=== PATIENT | female | born 2000 | race Two or more races ===

== ENCOUNTER 2023-06-12 14:45 | Outpatient (CLI) | payer OTHER ==
[2023-06-13 01:33] LABS: BACTERIAL VAGINOSIS DNA NEGATIVE (NEGATIVE); CANDIDA GLABRATA DNA NEGATIVE (NEGATIVE); CANDIDA GROUP DNA NEGATIVE (NEGATIVE); CANDIDA KRUSEI DNA NEGATIVE (NEGATIVE); TRICHOMONAS VAGINALIS DNA NEGATIVE (NEGATIVE)
== END 2023-06-12 15:00 | disposition home or self-care (01) ==
LOC: LAB.N 14:45
PROVIDERS: ATTEND Family Medicine
DX: N76.0 Acute vaginitis (principal)
CPT/HCPCS: 81514

== ENCOUNTER 2024-01-09 21:47 | Emergency (ER) | payer MEDICAID, OTHER ==
--- NOTE | 2024-01-09 22:29 | ED Physician Documentation ---
PD HPI LOWER EXT INJURY - Stated complaint Stated Complaint: LT KNEE INJ - Chief complaint Chief Complaint: Laceration - History obtained from History obtained from: Patient - History of Present Illness PD HPI LOW EXT INJURY LOCATION: Left (23-year-old woman who is up-to-date on tetanus cut her left knee on a sharp glass edge at home just prior to arrival. She is able to walk and bear weight. No other injuries.) PD PAST MEDICAL HISTORY - Past Medical History Past Medical History: No - Past Surgical History Past Surgical History: No - Present Medications Home Medications: Ambulatory Orders Medication Instructions Recorded Confirmed Loratadine [Claritin] 10 mg PO DAILY 01/09/24 01/09/24 - Allergies Allergies/Adverse Reactions: Allergies Allergy/AdvReac Type Severity Reaction Status Date / Time No Known Drug Allergies Allergy Verified 01/09/24 22:00 - Social History Does the pt smoke?: No Smoking Status: Never smoker Does the pt drink ETOH?: No Does the pt have substance abuse?: No - Immunizations Immunizations are current?: Yes - POLST Patient has POLST: No PD ED PE NORMAL - Vitals Vital signs reviewed: Yes - General General: Alert and oriented X 3, No acute distress - Extremities Extremities: Other (1 cm vertical laceration over the left mid patella that does not track to the bursa. No bony tenderness or limited range of motion.) - Neuro Neuro: Alert and oriented X 3 Eye Opening: Spontaneous Motor: Obeys Commands Verbal: Oriented GCS Score: 15 Results - Vitals Vitals: Vital Signs - 24 hr 01/09/24 21:55 Temperature 36.7 C Heart Rate 80 Respiratory 19 Rate Blood Pressure 126/70 O2 Saturation 98 Oxygen O2 Source Room air Procedures - Laceration (location) L knee Length in cm: 1 Wound type: Linear, Into subcut fat Anesthesia: Lidocaine 1% with epi Wound preparation: Chlorhexadine, Irrigated copiously NS Skin layer closure: Nylon, Interrupted, Size #-0 - enter number (4-0), Sutures - enter # (3) Other: Patient tolerated well, No complications, Neurovascular intact, Tetanus UTD Departure - Departure Disposition: 01 Home, Self Care Clinical Impression: Laceration of left knee Qualifiers: Encounter type: initial encounter Qualified Code(s): S81.012A - Laceration without foreign body, left knee, initial encounter Condition: Good Record reviewed to determine appropriate education?: Yes Instructions: ED Laceration All Comments: Come back for any signs of infection which would include: Redness, swelling, drainage, increased pain, or fevers. You can wash it soap and water. Keep it covered and moist with bacitracin ointment which is available over the counter; avoid neosporin. Follow-up with your physician in About 14 days for suture removal. Forms: PCP List
[2024-01-09] MEDS: LIDOCAINE 1%-EPI 1:100000 20 ML MDV SUBQ STA (22:30)
[2024-01-09] MEDS ORDERED: ACETAMINOPHEN 500 MG TABLET PO ONE (22:38)
[2024-01-09] MEDS: ACETAMINOPHEN 500 MG TABLET PO STA (22:40)
[2024-01-09 22:56] VITALS: BP 127/78; O2SAT 99
== END 2024-01-09 22:50 | disposition home or self-care (01) ==
LOC: ED 21:47
DX: S81.012A Laceration without foreign body, left knee, initial encounter (principal); W25.XXXA Contact with sharp glass, initial encounter
CPT/HCPCS: 12001; 99283; A9270

== ENCOUNTER 2024-01-30 17:34 | Emergency (ER) | payer MEDICAID ==
[2024-01-30 18:05] LABS: BILIRUBIN,URINE NEGATIVE (NEGATIVE); GLUCOSE, URINE (UA) NEGATIVE (NEGATIVE); KETONES,URINE (UA) NEGATIVE (NEGATIVE); LEUKOCYTE ESTERASE, URINE NEGATIVE (NEGATIVE); NITRITE,URINE NEGATIVE (NEGATIVE); OCCULT BLOOD,URINE NEGATIVE (NEGATIVE); PROTEIN,URINE NEGATIVE (NEGATIVE); UROBILINOGEN,URINE 0.2 (NORMAL) E.U./dL (NORMAL)
[2024-01-30 18:22] LABS: CLARITY,URINE CLEAR (CLEAR); HCG UR QUAL NEGATIVE
--- NOTE | 2024-01-30 21:57 | ED Physician Documentation ---
History of Present Illness - Stated complaint Stated Complaint: - Chief complaint Chief Complaint: General - Additonal information Additional information: Patient is a 23-year-old female who presents to the emergency department with vaginal discharge and pruritus. She notes symptoms have been going on for the past few days. She notes she has been diagnosed with bacterial vaginosis a few times this year and symptoms feel similar. She denies any pelvic pain no vaginal bleeding with her symptoms. Patient denies being . She is sexually active but has not had a new partner in 6 months. Patient has low concern for any chlamydia or gonorrhea infection. She denies any fevers or chills associated with her symptoms. No nausea or vomiting. PD PAST MEDICAL HISTORY - Past Surgical History Past Surgical History: No - Present Medications Home Medications: Ambulatory Orders Medication Instructions Recorded Confirmed Loratadine [Claritin] 10 mg PO DAILY 01/09/24 01/30/24 Bcp 1 tab PO DAILY 01/30/24 Fluconazole 150 mg PO ONCE #1 tablet 01/30/24 - Allergies Allergies/Adverse Reactions: Allergies Allergy/AdvReac Type Severity Reaction Status Date / Time No Known Drug Allergies Allergy Verified 01/30/24 17:43 - Social History Does the pt smoke?: No Smoking Status: Never smoker Does the pt drink ETOH?: No Does the pt have substance abuse?: No - Immunizations Immunizations are current?: Yes - POLST Patient has POLST: No PD ED PE NORMAL - Vitals Vital signs reviewed: Yes - General General: Alert and oriented X 3 - HEENT HEENT: Atraumatic - Neck Neck: Supple, no meningeal sign - Cardiac Cardiac: RRR, No gallop, No rub - Respiratory Respiratory: No respiratory distress, Clear bilaterally - Abdomen Abdomen: Normal bowel sounds - Female Female : Air Conditioner Installer Helper present (Pelvic exam shows minimal discharge from cervix. No signs of bleeding. But no CMT or pelvic mass palpable.), Other - Rectal Rectal: Deferred - Back Back: No CVA TTP Results - Vitals Vitals: Oxygen O2 Source Room air - Labs Labs: Laboratory Tests 01/30/24 01/30/24 01/30/24 17:56 21:08 21:08 Urine Color YELLOW Urine Clarity CLEAR Urine pH 6.0 Ur Specific [place] <=1.005 Urine Protein NEGATIVE Urine Glucose (UA) NEGATIVE Urine Ketones NEGATIVE Urine Occult Blood NEGATIVE Urine Nitrite NEGATIVE Urine Bilirubin NEGATIVE Urine Urobilinogen 0.2 (NORMAL) Ur Leukocyte Esterase NEGATIVE Ur Microscopic Review NOT INDICATED Urine Culture Comments NOT INDICATED Urine HCG, Qual NEGATIVE C. glabrata (PCR) NEGATIVE C. krusei (PCR) POSITIVE A Nohemy species DNA NEGATIVE Chlam trachomat DNA PCR NEGATIVE N.gonorrhoeae DNA (PCR) NEGATIVE T. vaginalis (PCR) NEGATIVE TNP Bact Vaginosis (PCR) NEGATIVE PD Medical Decision Making - ED course Complexity details: reviewed old records, reviewed results ED course: Patient is a 23-year-old female presenting to the emergency department with vaginal pruritus and itching. Symptoms seem to be going on for a few days now. Patient notes no abdominal pain with her symptoms. She is sexually active. She notes symptoms feel similar to when she had bacterial vaginosis in the past. She completed full treatment with metronidazole with bacterial vaginosis. She notes no fevers with her symptoms. Patient denies being but is sexually active. Vital stable on arrival. Physical exam did show minimal discharge from cervical os with white curd like discharge from os. No CMT or pelvic palpable mass. No adnexal tenderness. Patient tested positive for candidiasis. Will cover with fluconazole. Patient given prescription and instructions for treatment. Patient will be called on chlamydia and gonorrhea results if they are positive. Patient understands and is agreeable with this plan. Departure - Departure Disposition: 01 Home, Self Care Clinical Impression: Candidiasis, Yeast infection involving the vagina and surrounding area Condition: Good Prescriptions: Fluconazole 150 mg PO ONCE #1 tablet Comments: You were seen here in the emergency department for your symptoms of vaginal discharge you noted to have a yeast infection I have given you oral antifungal to help with your symptoms you should follow-up with your PCP if symptoms persist beyond 72 hours you may need a repeat treatment return with any pelvic pain vaginal bleeding fevers discharge nausea vomiting. Forms: PCP List Discharge Date/Time: 01/30/24 23:32
[2024-01-30 23:04] LABS: BACTERIAL VAGINOSIS DNA NEGATIVE (NEGATIVE); CANDIDA GLABRATA DNA NEGATIVE (NEGATIVE); CANDIDA GROUP DNA NEGATIVE (NEGATIVE); CANDIDA KRUSEI DNA POSITIVE (NEGATIVE); TRICHOMONAS VAGINALIS DNA NEGATIVE (NEGATIVE)
[2024-01-30 23:41] VITALS: BP 138/76; O2SAT 100
[2024-01-31 00:52] LABS: CHLAMYDIA TRACHOMATIS DNA NEGATIVE (NEGATIVE); NEISSERIA GONORRHOEAE DNA NEGATIVE (NEGATIVE)
== END 2024-01-30 23:32 | disposition home or self-care (01) ==
LOC: ED 17:34
DX: B37.31 Acute candidiasis of vulva and vagina (principal); Z79.899 Other long term (current) drug therapy
CPT/HCPCS: 81001; 81003; 81025; 81514; 87086; 87101; 87491; 87591; 87661; 87801; 99282; 99283